=== PATIENT | female | born 1985 | race Caucasian/White ===

== ENCOUNTER 2023-10-13 13:08 | Emergency (ER) | payer OTHER, SELFPAY ==
[2023-10-13 13:16] VITALS: BP 134/95
[2023-10-13 13:33] LABS: % Basophils 0.6 % (0-2); % Eosinophils 0.5 % (0-6); % Immature Granulocytes 0.3 % (0-0.5); % Neutrophils 64.6 % (42.2-75.2); Absolute Basophils 0.1 10^3/uL (0-0.2); Absolute Lymphocytes 2.3 10^3/uL (1.2-3.4); Absolute Monocytes 0.4 10^3/uL (0.1-0.6); Absolute Neutrophils 5.1 10^3/uL (1.4-6.5); Hematocrit 35.6 % (37.0-47.0); Hemoglobin 11.7 g/dL (12.0-16.0); Mean Corp Hgb Conc. 32.9 g/dL (33.0-37.0); Mean Corpuscular Hgb 27.2 pg (27.0-31.0); Mean Corpuscular Volume 82.8 fL (81.0-99.0); Mean Platelet Volume 10.2 fL (7.4-10.4); Nucleated Red Blood Cells % 0 %; Platelet Count 315 10^3/uL (130-400); White Blood Cell Count 7.9 10^3/uL (4.8-10.8)
[2023-10-13 13:50] LABS: ALT (SGPT) 14 U/L (0-35); AST (SGOT) 23 U/L (14-36); Albumin 4.9 g/dl (3.5-5.0); Alkaline Phosphatase 60 U/L (38-126); Blood Urea Nitrogen 11 mg/dl (7-17); Calcium 9.8 mg/dl (8.4-10.2); Carbon Dioxide 19 mmol/L (22-30); Chloride 102 mmol/L (98-107); Glucose 141 mg/dl (70-99); Potassium 3.4 mmol/L (3.5-5.1); Sodium 135 mmol/L (135-145); Total Bilirubin 0.5 mg/dl (0.2-1.3); eGFR > 60.00
[2023-10-13 14:01] LABS: Troponin I < 0.012 ng/ml
[2023-10-13 17:57] VITALS: BP 125/94
[2023-10-13 19:28] LABS: TSH Reflex To Free T4 2.59 uIU/ml (0.47-4.68)
--- NOTE | 2023-10-13 22:51 | ED.GENMED ---
History of Present Illness
General
Chief Complaint: Chest Pain
Source: patient
Exam Limitations: none
Time Seen by Provider: 10/13/23 17:36
Nursing documentation reviewed up to this point in time: agreed with
Travel History
Have you had any contact with someone who has COVID-19?: No
Do you have any symptoms of coronavirus? Fever > 100 degrees, chills, cough, shortness of breath, sore throat, loss of taste or smell, muscle aches, or headache?: No
History of Present Illness
History of Present Illness:
Patient with complaint of sudden onset of 'wave coming over her' followed by palpitations. today she noted chest pain. SHe has had these symptoms for the past year and has been to 3 different ED's. ALl work-ups were normal. Brought self to ED
today after another episode. On arrival to ED she is symptom free.
Past History
Past History
ED Past Medical History: None
Review of Systems
Review of Systems
Allergies reviewed?: Yes
All Other Systems: ROS reviewed and negative except as documented in HPI and ROS
Constitutional: Reports no symptoms
EENT: Reports no symptoms
Respiratory: Reports no symptoms
Cardiac: Reports chest pain and palpitations
ABD/GI: Reports no symptoms
: Reports no symptoms
Musculoskeletal: Reports no symptoms
Skin: Reports no symptoms
Neurological: Reports no symptoms
Psychiatric: Reports no symptoms
Phy Exam
General Physical Exam
General Presentation: well appearing and no apparent distress
General age: appears stated age
General Skin: warm and dry
General Habitus: normal
General Mental: alert
Cardiovascular Exam
Cardiovascular Exam: regular rate/rhythm and no edema
Pulmonary Exam
Pulmonary Exam: lungs clear and no respiratory distress
Musculoskeletal Exam
Musculoskeletal Exam: full ROM and neuro vasc intact
Skin Exam
Skin Exam: normal color, warm/dry and no rash
Psychiatric Exam
Psychiatric Exam: normal mood/affect
Scores
Heart Score for Chest Pain Patients
STEMI patient?: Not applicable
Course
Orders/Labs/Results
Orders:
Orders
10/13/23 13:20
ECG [Electrocardiogram (*1)] Urgent
Reason for Study: Chest Pain
EKG- Treatment ONCE
10/13/23 13:26
Complete Blood Count/With Diff Urgent
Comprehensive Metabolic Panel Urgent
TSH Reflex To Free T4 Urgent
Comment: ADD ON
Troponin I Urgent
10/13/23 17:59
Add On- LAB Urgent
Tests Added?: TSH reflex to t4
Abnormal Lab Results
10/13/23
13:26
Hgb 11.7 L g/dL
(12.0-16.0)
Hct 35.6 L %
(37.0-47.0)
MCHC 32.9 L g/dL
(33.0-37.0)
Potassium 3.4 L mmol/L
(3.5-5.1)
Carbon Dioxide 19 L mmol/L
(22-30)
Glucose 141 H mg/dl
(70-99)
10/13/23 13:26
10/13/23 13:26
Vital Signs
Initial and Last Documented VS:
Initial Vital Signs
Temp Pulse Resp BP Pulse Ox
97.5 F 134 20 134/95 100
10/13/23 13:16 10/13/23 13:16 10/13/23 13:16 10/13/23 13:16 10/13/23 13:16
Last Documented Vital Signs
Temp Pulse Resp BP Pulse Ox
97.5 F 84 20 125/94 100
10/13/23 13:16 10/13/23 17:57 10/13/23 17:57 10/13/23 17:57 10/13/23 17:57
*Radiology
Radiology exam reviewed: radiology read reviewed
*Pulse Oximetry
Patient hypoxic: no
*EKG
Interpretation: normal
Rate: normal
Rhythm: sinus
*Critical Care Note
Total Time (30-74mins, 75-104mins- exclusive of procedures): Not Applicable
ED Attending Note
-
Portions of this chart may have been created with voice recognition software.� Occasional wrong word or��sound alike� substitutions may have occurred due to the inherent limitations of voice recognition software.
Discharge Plan
Departure
Patient Disposition: Home (Routine Discharge)
Date of Disposition: 10/13/23
Time of Disposition: 18:02
Patient with high blood pressure during this ER visit?: No
Condition: Good
Covid-19: Not Applicable
Discharge Problem:
Chest pain, Pre-syncope
Instructions: Dizziness, Nonvertigo, (DC), Chest Pain PCP Follow Up
Referrals:
UNKNOWN - PT DOES,NOT KNOW [Unknown Provider] -
Stand Alone Forms: Return to Work
Activity Restrictions/Additional Instructions:
Follow up with your family doctor. As we discussed, a holter monitor would be helpful addressing your heart symptoms. Please speak with your doctor about ordering this
Interventions
Interventions:
*Risk Screen - Suicide Last Done: 10/13/23 18:29
*General Assessment Last Done: 10/13/23 18:29
*Neglect/Abuse Screening Last Done: 10/13/23 18:29
ED- Fall Risk Assessment Last Done: 10/13/23 18:29
*ED COVID-19 Vaccine History Last Done: 10/13/23 13:16
*Nursing Disposition Last Done: 10/13/23 18:29
ED- Cardiac Assessment Last Done: 10/13/23 17:58
Discharge Date and Time
Discharge Date/Time: 10/13/23 18:29
Print Language: [id number]
== END 2023-10-13 18:29 | disposition home or self-care (01) ==
LOC: EMR 13:08
PROVIDERS: Emergency Medicine; EMERGENCY PHYSICIAN Emergency Medicine
DX: R07.89 Other chest pain (principal); R55 Syncope and collapse
CPT/HCPCS: 99283; 80053; 84443; 84484; 85025; 93005